=== PATIENT | male | born 1980 ===

== ENCOUNTER 2020-01-16 16:00 | Outpatient (CLI) | payer BC | END 2020-01-16 16:01 | disposition home or self-care (01) | LOC: SLEEPLAB 16:00 | PROVIDERS: ATTEND Internal Medicine Critical Care Medicine | DX: G47.33 Obstructive sleep apnea (adult) (pediatric) (principal); E66.9 Obesity, unspecified; R06.83 Snoring; R35.1 Nocturia; I10 Essential (primary) hypertension | CPT/HCPCS: 95806 ==